=== PATIENT | male | born 1970 | race Caucasian/White ===

== ENCOUNTER → 2016-05-22 | Outpatient (CLI) | payer OTHER, BC ==
[~2016-05-22] MED LIST: ASCA500 PO; BACTRIM PO; CALC625T13 PO; CHOL1000 PO; CLR10 PO; GARL1CAP6 PO; KETO10TA PO; LISI10TA PO; OMEG10007 PO; OXYC-57 PO; SULF800T23 PO
--- NOTE | 2016-05-22 08:42 | DIAGNOSTIC IMAGING REPORT ---
ORBIT RADIOGRAPHS 3 VIEWS HISTORY: pre-MRI screening. COMPARISON: None. FINDINGS: There are no radiopaque foreign bodies identified within the orbits. IMPRESSION: No radiopaque foreign bodies identified within the orbits. Electronically signed by: Horacio Joe M.D. 05/22/2016 8:40 AM Dictated Date/Time: 05/22/2016 8:40 AM
--- NOTE | 2016-05-22 10:08 | DIAGNOSTIC IMAGING REPORT ---
MRI the left shoulder no contrast CLINICAL HISTORY: Left shoulder pain. Possible rotator cuff tear. COMPARISON STUDY: No previous studies for comparison. FINDINGS: Imaging was performed in the sagittal paracoronal and axial planes. The study is compromised due to motion artifact. Degenerative changes are present within the AC joint. There is a small joint effusion. There is medial subluxation the bicipital tendon. There are osteoarthritic changes present within the glenohumeral joint. There is a full-thickness tear of the supraspinatus tendon with mild tendinous retraction. There is a small loose body within the subcutaneous coracoid bursa. IMPRESSION: 1. Joint effusion small loose body 2. Full-thickness rotator cuff tear with mild tendinous retraction 3. Medial subluxation the bicipital tendon 4. Degenerative changes in the AC joint and glenohumeral joint Electronically signed by: Horacio Joe M.D. 05/22/2016 10:07 AM Dictated Date/Time: 05/22/2016 10:01 AM
== END | disposition home or self-care (01) ==
LOC: C.RADBC 08:12
PROVIDERS: ATTEND Orthopaedic Surgery
DX: M25.412 Effusion, left shoulder (principal); M24.012 Loose body in left shoulder; M75.102 Unspecified rotator cuff tear or rupture of left shoulder, not specified as traumatic

== ENCOUNTER → 2016-06-06 | Outpatient (CLI) | payer OTHER, BC ==
[2016-06-06 09:38] LABS: BASO % 0.5 %; BASO ABS # 0.04 K/uL (0-0.2); COMPLETE YES; HEMATOCRIT 50.3 % (42-52); IG% 0.6 %; LYMPH % 24.1 %; LYMPH ABS # 1.98 K/uL (1.2-3.4); MEAN CELL VOLUME 87.5 fL (80-100); MEAN CORPUSCULAR HEMOGLOBIN 30.8 pg (25-34); MEAN CORPUSCULAR HGB CONC 35.2 g/dl (32-36); MEAN PLATELET VOLUME 10.2 fL (7.4-10.4); MONO % 10.4 %; NEUT % 63.4 %; PLATELET COUNT 188 K/uL (130-400); RED BLOOD COUNT 5.75 M/uL (4.7-6.1); WHITE BLOOD COUNT 8.21 K/uL (4.8-10.8)
[2016-06-06 09:56] LABS: BLOOD UREA NITROGEN 16 mg/dl (7-18); BUN/CREATININE RATIO 15.9 (10-20); CALCIUM 9.2 mg/dl (8.5-10.1); CARBON DIOXIDE 31 mmol/L (21-32); CHLORIDE 102 mmol/L (98-107); GLUCOSE 90 mg/dl (70-99); POTASSIUM 4.1 mmol/L (3.5-5.1); SODIUM 140 mmol/L (136-145)
== END | disposition home or self-care (01) ==
LOC: C.RAD 06:51
PROVIDERS: ATTEND Orthopaedic Surgery
DX: Z01.810 Encounter for preprocedural cardiovascular examination (principal); Z01.812 Encounter for preprocedural laboratory examination; M75.122 Complete rotator cuff tear or rupture of left shoulder, not specified as traumatic; I49.1 Atrial premature depolarization; I49.3 Ventricular premature depolarization

== ENCOUNTER → 2016-06-29 | Day surgery (SDC) | payer BC, OTHER ==
[2016-06-16 07:51] VITALS: Ht 190.5 cm; Wt 125.0 kg
[~2016-06-29] VITALS: Ht 190.5 cm; Wt 125.0 kg
[~2016-06-29] MED LIST changes: +BUPIVACAINE 0.5 % 5 MG/1 ML MPF 30ML VIAL ONE; +BUPIVACAINE/EPINEPHRINE 0.25% 1:200,000 30 ML VIAL ONE; +CLINDAMYCIN PHOS 150 MG/ML 2 ML VIAL IV SCH; +DEXAMETHASONE SOD INJ 4 MG/ML VIAL ONE; +EpHEDrine SULFATE 50MG/5ML SYR ONE; +EpINEphrine INJ 1MG/ML AMP 1 MG/ML AMP ONE; +FENTANYL CITRATE INJ 50 MCG/1 ML 2 ML VIAL IV PRN; +FENTANYL CITRATE INJ 50 MCG/1 ML 2 ML VIAL ONE; +GLYCOPYRROLATE INJ 0.2 MG/ML VIAL ONE; +LACTATED RINGER'S 1000ML 1,000 ML IV PRN; +LACTATED RINGER'S 1000ML 1,000 ML IV SCH; +LIDOCAINE HCL 2% 2 ML VIAL (20MG/ML) ONE; +MIDAZOLAM HCL 1 MG/ML 2ML VIAL ONE; +NEOSTIGMINE METHYLSULFATE 5 MG/5 ML SYR ONE; +ONDANSETRON INJ 2 MG/ML 2 ML VIAL IV PRN; +ONDANSETRON INJ 2 MG/ML 2 ML VIAL ONE; +OXYCODONE/ACETAMINOPHEN 5-325 TAB PO PRN; +PROPOFOL IV EMULSION 10 MG/ML 20 ML VIAL IV ONE; +ROCURONIUM BROMIDE 10 MG/ML 5 ML VIAL ONE; +SCOPOLAMINE 1.5 MG TDSY TD ONE; +SODIUM CHLORIDE 0.9% 1000ML 1,000 ML IV SCH; +SUCCINYLCHOLINE CHLORIDE 20 MG/ML 10 ML VIAL IV ONE
--- NOTE | 2016-06-29 08:37 | History & Physical Bridge - SC ---
H&P Re-Evaluation Bridge Note: I have examined the patient, reviewed the History & Physical and in the interval since the performance of the History & Physical I have noted the following changes of clinical significance: No changes noted
--- NOTE | 2016-06-29 13:27 | [facility] Post Operative Brief Note ---
Immediate Operative Summary Operative Date Jun 29, 2016. Pre-Operative Diagnosis Left Shoulder Full Thickness Rotator Cuff Tear Post-Operative Diagnosis Same Procedure(s) Performed Left Shoulder Arthroscopy, Large Rotator Cuff Repair, Biceps Tenodesis, Acromioplasty, Distal Clavicle Resection Surgeon Dr. Mcgee Resort Desk Clerk Surgeon(s) Jamshid Eid PA-C Estimated Blood Loss 20 ml Findings as above Specimens None Complication(s) None Disposition Recovery Room / PACU
--- NOTE | 2016-06-29 13:35 | Discharge Instructions-SurgCtr ---
Discharge Instructions Date of Service Jun 29, 2016. Visit Reason for Visit: Left Shoulder Full Thickness Rotator Cuff Tear Discharge Discharge Diagnosis / Problem: SAME ABOVE Discharge Goals Goal(s): Decrease discomfort, Improve function Medications Stopped Medications Name(s): FISH OIL STOPPED 1 WEEK AGO Restart Stopped Medication(s): MAY RESTART 06/30/2016 Activity Recommendations Activity Limitations: as noted below Lifting Limitations: until after follow-up appointment Exercise/Sports Limitations: until after follow-up appointment Shower/Bathe: tomorrow Anesthesia . Post Anesthesia Instructions: If you have had General Anesthesia or IV Sedation: * Do not drive today. * Resume driving when surgeon permits. * Do not make important decisions or sign legal documents today. * Call surgeon for: 1. Temperature elevations greater than 101 degrees F. 2. Uncontrollable pain. 3. Excessive bleeding. 4. Persistent nausea and vomiting. 5. Medication intolerance (nausea, vomiting or rash). * For nausea and vomiting use only clear liquids such as: tea, soda, bouillon until nausea subsides, then gradually increase diet as tolerated. * If you have any concerns or questions, call your surgeon's office. If physician is unavailable and it is an emergency, call 911 or go to the nearest emergency room. . Instructions / Follow-Up Instructions / Follow-Up MEDICATIONS: * Resume previous medications unless instructed otherwise by your surgeon. * Always take pain medication on a full stomach or with food to avoid upset stomach. * Do not drink alcohol or drive while taking narcotics. * Ibuprofen or Tylenol may be taken if narcotic not needed. SPECIAL CARE INSTRUCTIONS: __ None _X_ Keep extremity elevated and iced x 48 hours; apply ice 20-30 minutes 8-10 times/day. May remove at night. __ Sling __24 hrs/day __ Remove at night _X_ Shoulder Immobilizer (MAY REMOVE AFTER 48 HOURS ONLY FOR THERAPY AND TO SHOWER) _X_ 24 hrs/day __ Remove at night _X_ Dressing __ Maintain until seen in office, may shower with plastic over site _X_ Remove dressings in 48 hours and then may shower _X_ Cover incisions with band-aids after showering _X_ Do not remove steri-strips (THEY ARE IN THE ARMPIT AND MAY FALL OFF ON THEIR OWN) Call physician if chills or temperature rises above 102 degrees or pain unrelieved by prescribed pain medications at . . Diet Recommendations Home Diet: no limitations Fluid Restriction: None Procedures Procedures Performed: Left Shoulder Arthroscopy, Large Rotator Cuff Repair, Biceps Tenodesis, Acromioplasty, Distal Clavicle Resection Pending Studies Studies pending at discharge: no Work Instructions Return To Work: after follow-up Lifting Limitations: NO LIFTING WITH LEFT ARM Medical Emergencies . Who to Call and When: Medical Emergencies: If at any time you feel your situation is an emergency, please call 911 immediately. . Non-Emergent Contact Non-Emergency issues call your: Primary Care Provider Call Non-Emergent contact if: you have a fever, temperature is above 101.5 . . "Provider Documentation" section prepared by Harjit Eid.
--- NOTE | 2016-06-29 13:40 | Anesthesia Progress Nt - [facility] ---
Anesthesia Post Op Note Date & Time Jun 29, 2016 at 13:41 Vital Signs Pain Intensity: 0 Vital Signs Past 12 Hours Date Time Temp Pulse Resp B/P Pulse Ox O2 Delivery O2 Flow Rate FiO2 06/29/16 10:15 147/92 06/29/16 10:13 91 06/29/16 10:13 91 20 98 06/29/16 10:10 143/99 06/29/16 10:08 83 06/29/16 10:08 83 19 98 06/29/16 10:05 124/83 06/29/16 10:03 78 06/29/16 10:03 79 9 97 06/29/16 10:00 135/81 06/29/16 09:59 141/86 06/29/16 09:58 90 06/29/16 09:58 91 16 98 06/29/16 09:53 92 12 99 06/29/16 09:53 92 06/29/16 09:48 0 06/29/16 09:43 0 06/29/16 09:38 0 06/29/16 09:33 0 06/29/16 09:28 0 06/29/16 09:23 0 06/29/16 09:18 0 06/29/16 09:13 0 06/29/16 09:08 0 06/29/16 09:03 0 06/29/16 08:27 37.2 87 20 140/88 97 Notes Mental Status: alert / awake / arousable, participated in evaluation Pt Amnestic to Procedure: Yes Nausea / Vomiting: adequately controlled Pain: adequately controlled Airway Patency, RR, SpO2: stable & adequate BP & HR: stable & adequate Hydration State: stable & adequate Anesthetic Complications: no major complications apparent Pt doing well.
--- NOTE | 2016-06-29 14:41 | OPERATIVE REPORT ---
DATE OF OPERATION: 06/29/2016 PREOPERATIVE DIAGNOSIS: Acute traumatic left rotator cuff tear. POSTOPERATIVE DIAGNOSIS: Same. PROCEDURE: Left shoulder diagnostic arthroscopy with extensive debridement, distal clavicle resection, acromioplasty, massive rotator cuff repair including supraspinatus, infraspinatus and subscapularis and open subpectoral biceps tenodesis. SURGEON: Dr. Jose Mcgee. CHEMIST: Frank Eid PA-C, whose assistance was necessary for positioning the arm and helping with instrumentation. ANESTHESIA: General with left interscalene nerve block. COMPLICATIONS: None. CONDITION: Stable to PACU. This case took longer than the average rotator cuff repair. After the supraspinatus and infraspinatus were repaired successfully separate incisions were made to repair the subscapularis. The addition of the subscapularis repair took over 50% longer of operative time. INDICATIONS: Gustavo is a pleasant 45-year-old male who fell at work several months ago. He noticed weakness and pain in his left shoulder. MRI and clinical examination were diagnostic for large to massive rotator cuff tear. After failing conservative treatment, he elected to undergo arthroscopy. OPERATION AND FINDINGS: PROCEDURE: On 06/29/2016, he arrived at [facility] for the above procedure. He was seen in the preoperative holding area and the operative extremity was identified and signed. He was given a preoperative antibiotic and a left interscalene nerve block. He was taken back to the operating room, laid on the table in supine position and put under general anesthesia. He was then put into the beachchair position. The left shoulder was prepped and draped in sterile fashion. Time-out was done and the patient and operative extremity was properly identified. A scope was introduced in the posterior portal. Diagnostic arthroscopy showed no cartilage damage to the humeral head or the glenoid. The biceps tendon was subluxated medially and the upper half of the subscapularis was torn. There was some fraying of the labrum. There was a complete tear of the entire supraspinatus and the superior half of the infraspinatus. The teres minor was intact. An anterior portal was made. A shaver was used to start an extensive debridement of the intraarticular structures and the biceps tendon was arthroscopically tenotomized. The scope was then put into the subacromial space. A lateral portal was made. A shaver was used to do a complete subacromial and subdeltoid bursectomy. An ablator was used to tease the coracoacromial ligament off the undersurface of the acromion and a 5-0 marisol was used to complete an acromioplasty of a Bigliani type 3 acromion. A shaver was used to remove any excess debris and the distal clavicle was examined. There were very large osteophytes hanging off the inferior aspect of the distal clavicle. A 5-0 marisol was used to co-plane the undersurface of the clavicle and open up the supraspinatus outlet. Attention was then turned to the rotator cuff. An additional anterolateral portal was made and Zakiya cannulas were placed in each of the lateral portals. It was a massive traumatic rotator cuff tear involving 3 tendons. The tuberosity was prepared with a ring curette and a microfracture. The supraspinatus and infraspinatus were fixed with an Arthrex suspension bridge configuration using 4.75 mm BioComposite SwiveLock suture anchors. This gave a nice anatomic repair. The scope was placed back into the joint. A 70 degree scope was used. The subscapularis tear was identified, the additional anterior portal was made. The lesser tuberosity was prepared with a ring curette. A single 4.75 mm BioComposite SwiveLock suture anchor was placed along the medial row and the FiberTapes were passed through the tendon with a suture lasso. The scope was then put into the subacromial space and the FiberTapes were brought down to a single 4.75 mm BioComposite SwiveLock suture anchor. This gave a nice modified SpeedBridge repair. Multiple pictures were taken. The scope was placed back into the glenohumeral joint and the articular margin of the rotator cuff had been completely restored. Arthroscopic instruments were removed from the shoulder. Attention was turned to an open biceps tenodesis. A small incision was made over the inferior border of the pec major. Dissection was taken down through the fascia and the long head of the biceps tendon was delivered out of the wound. The tendon was then whip stitched at the anticipated level of tenodesis. The remainder of the tendon was discarded. A 6 mm hole was drilled in the bicipital groove and the biceps tendon was tenodesed with an Arthrex biceps button that was passed through the posterior cortex in tension slide technique to deliver the tendon into the 6 mm hole. This gave good fixation. The wound was then irrigated and closed with 3-0 Vicryl and running 3-0 Monocryl. Steri-strips were placed. Portal sites were closed with 3-0 nylon. He was then placed in a soft dressing and abduction arm sling. He was then extubated, transferred to a [facility] and taken to the postanesthesia care unit in stable condition. He tolerated the procedure well. I attest to the content of the Intraoperative Record and any orders documented therein. Any exceptio ns are noted below.
[2016-06-29 15:06] VITALS: TEMP 36.5
[2016-06-29 15:44] VITALS: BP 155/97; PULSE 92; O2SAT 95
== END | disposition home or self-care (01) ==
LOC: X.SURG 07:53
PROVIDERS: ATTEND Orthopaedic Surgery
DX: S43.422A Sprain of left rotator cuff capsule, initial encounter (principal); W19.XXXA Unspecified fall, initial encounter; I10 Essential (primary) hypertension; Y93.89 Activity, other specified; Y92.89 Other specified places as the place of occurrence of the external cause; Y99.8 Other external cause status

== ENCOUNTER → 2016-12-14 | Day surgery (SDC) | payer BC ==
[2016-12-13 08:33] VITALS: Ht 190.5 cm; Wt 125.0 kg
[~2016-12-14] VITALS: Ht 190.5 cm; Wt 125.0 kg
[~2016-12-14] MED LIST changes: +ATROPINE SULFATE 0.1 MG/ML 5ML SYR IV PRN; -BUPIVACAINE 0.5 % 5 MG/1 ML MPF 30ML VIAL ONE; -BUPIVACAINE/EPINEPHRINE 0.25% 1:200,000 30 ML VIAL ONE; +BUPIVACAINE/EPINEPHRINE 0.5% MPF 1:200,000 30 ML VIAL ONE; -EpHEDrine SULFATE 50MG/5ML SYR ONE; +EpHEDrine SULFATE INJ 50 MG/ML AMP IV PRN; -EpINEphrine INJ 1MG/ML AMP 1 MG/ML AMP ONE; -GLYCOPYRROLATE INJ 0.2 MG/ML VIAL ONE; +HYDROCODONE/ACETAMOPHEN 5/325MG TAB PO PRN; +HYDROmorphone INJ 1 MG/ML SYR IV PRN; -KETO10TA PO; -LACTATED RINGER'S 1000ML 1,000 ML IV PRN; -NEOSTIGMINE METHYLSULFATE 5 MG/5 ML SYR ONE; -OXYC-57 PO; -OXYCODONE/ACETAMINOPHEN 5-325 TAB PO PRN; -ROCURONIUM BROMIDE 10 MG/ML 5 ML VIAL ONE; -SUCCINYLCHOLINE CHLORIDE 20 MG/ML 10 ML VIAL IV ONE
--- NOTE | 2016-12-14 14:49 | Discharge Instructions-SurgCtr ---
Discharge Instructions Date of Service Dec 14, 2016. Visit Reason for Visit: Right Prepatella Bursitis Discharge Discharge Diagnosis / Problem: SAME ABOVE Discharge Goals Goal(s): Decrease discomfort, Improve function Medications Stopped Medications Name(s): Held all supplements and Lisinopril held today Restart Stopped Medication(s): MAY RESTART 12/14/2016 Activity Recommendations Activity Limitations: as noted below Shower/Bathe: tomorrow Weightbearing Status: Right weightbearing Anesthesia . Post Anesthesia Instructions: If you have had General Anesthesia or IV Sedation: * Do not drive today. * Resume driving when surgeon permits. * Do not make important decisions or sign legal documents today. * Call surgeon for: 1. Temperature elevations greater than 101 degrees F. 2. Uncontrollable pain. 3. Excessive bleeding. 4. Persistent nausea and vomiting. 5. Medication intolerance (nausea, vomiting or rash). * For nausea and vomiting use only clear liquids such as: tea, soda, bouillon until nausea subsides, then gradually increase diet as tolerated. * If you have any concerns or questions, call your surgeon's office. If physician is unavailable and it is an emergency, call 911 or go to the nearest emergency room. . Instructions / Follow-Up Instructions / Follow-Up MEDICATIONS: * Resume previous medications unless instructed otherwise by your surgeon. * Always take pain medication on a full stomach or with food to avoid upset stomach. * Do not drink alcohol or drive while taking narcotics. * Ibuprofen or Tylenol may be taken if narcotic not needed. SPECIAL CARE INSTRUCTIONS: __ None _X_ Keep extremity elevated and iced x 48 hours; apply ice 20-30 minutes 8-10 times/day. May remove at night. __ Crutches __ May discard when able __ Brace/Post-op shoe __ 24 hrs/day __ Remove at night _X_ Dressing __ Maintain until seen in office, may shower with plastic over site _X_ Remove dressings in 24-48 hours and then may shower _X_ Cover incisions with band-aids after showering __ Do not remove steri-strips Call physician if chills or temperature rises above 102 degrees or pain unrelieved by prescribed pain medications. Office [phone] Diet Recommendations Home Diet: no limitations Fluid Restriction: None Procedures Procedures Performed: Right Prepatella Bursa Irrigation And Drainage With Bursectomy Pending Studies Studies pending at discharge: no Work Instructions Return To Work: 1 day Medical Emergencies . Who to Call and When: Medical Emergencies: If at any time you feel your situation is an emergency, please call 911 immediately. . Non-Emergent Contact Non-Emergency issues call your: Primary Care Provider Call Non-Emergent contact if: you have a fever, temperature is above 101.5 . . "Provider Documentation" section prepared by Harjit Eid. .
[2016-12-14 14:50] VITALS: TEMP 36.3
--- NOTE | 2016-12-14 14:53 | [facility] Post Operative Brief Note ---
Immediate Operative Summary Operative Date Dec 14, 2016. Pre-Operative Diagnosis Right Prepatella Bursitis Post-Operative Diagnosis Same Procedure(s) Performed Right Prepatella Bursa Irrigation And Drainage With Bursectomy Surgeon Dr. Mcgee Mat Man Surgeon(s) Jamshid Eid PA-C Estimated Blood Loss 5 cc Findings as above Specimens None Complication(s) None Disposition Recovery Room / PACU
[2016-12-14 15:27] VITALS: BP 126/73; PULSE 71; O2SAT 96
--- NOTE | 2016-12-14 15:29 | Anesthesiology Progress Note ---
Anesthesia Post Op Note Date & Time Dec 14, 2016 at 15:29 Vital Signs Pain Intensity: 0 Vital Signs Past 12 Hours Date Time Temp Pulse Resp B/P (MAP) Pulse Ox O2 Delivery O2 Flow Rate FiO2 12/14/16 15:27 71 18 126/73 (90) 96 Room Air 12/14/16 14:50 36.3 87 14 128/75 (92) 95 Room Air 12/14/16 13:14 37.0 87 16 133/89 (104) 96 Room Air Notes Mental Status: alert / awake / arousable, participated in evaluation Pt Amnestic to Procedure: Yes Nausea / Vomiting: adequately controlled Pain: adequately controlled Airway Patency, RR, SpO2: stable & adequate BP & HR: stable & adequate Hydration State: stable & adequate Anesthetic Complications: no major complications apparent
--- NOTE | 2016-12-14 22:17 | OPERATIVE REPORT ---
DATE OF OPERATION: 12/14/2016 PREOPERATIVE DIAGNOSIS: Septic prepatellar bursitis of the right knee. POSTOPERATIVE DIAGNOSIS: Same. PROCEDURE: Irrigation, debridement and excision of prepatellar bursa of the right knee. SURGEON: Dr. Jose Mcgee. REVIEW ASSISTANT: Harjit Eid PA-C, whose assistance was necessary for retraction and helping with instrumentation. ANESTHESIA: Local with sedation. COMPLICATIONS: None. CONDITION: Stable to PACU. INDICATIONS: Michael is a pleasant 46-year-old male who presented to my office with a swollen prepatellar bursa. I did do an aspiration but unfortunately it returned. It then developed a fistula and was constantly draining. It was cultured by his primary care physician and grew back MRSA. With the persistent drainage, I decided to do an I&D and bursectomy. PROCEDURE IN DETAIL: On 12/14/2016, he arrived at [facility] for the above procedure. He was seen in the preoperative holding area and the operative extremity was identified and signed. He was given a preoperative antibiotic and taken back to the operating room, laid on the table in supine position and given general sedation. The right knee was then prepped and draped in sterile fashion. Time-out was done and the patient and operative extremity was properly identified. The surgical site was anesthetized with 15 mL of Marcaine. Once analgesia was obtained, a longitudinal incision was made directly over the prepatellar bursa. Dissection was taken down through the fascia and the bursa was excised. There was no purulent material and no signs of pus. Time was spent ensuring a complete excision of the bursa. The space was then irrigated with a liter of normal saline solution. The edges of the skin were then incised back to good bleeding margins and the wound was closed with an everted mattress suture. Because it did not look grossly infected, I felt comfortable closing it without a drain. He was then placed in a soft compressive dressing and taken to the postanesthesia care unit in stable condition. He tolerated the procedure well. I attest to the content of the Intraoperative Record and any orders documented therein. Any exception s are noted below.
== END | disposition home or self-care (01) ==
LOC: X.SURG 12:49
PROVIDERS: ATTEND Orthopaedic Surgery
DX: M71.161 Other infective bursitis, right knee (principal); I10 Essential (primary) hypertension; Z79.899 Other long term (current) drug therapy

== ENCOUNTER → 2017-06-21 | Outpatient (CLI) | payer BC ==
[~2017-06-21] MED LIST changes: -ATROPINE SULFATE 0.1 MG/ML 5ML SYR IV PRN; -BUPIVACAINE/EPINEPHRINE 0.5% MPF 1:200,000 30 ML VIAL ONE; -CLINDAMYCIN PHOS 150 MG/ML 2 ML VIAL IV SCH; -DEXAMETHASONE SOD INJ 4 MG/ML VIAL ONE; -EpHEDrine SULFATE INJ 50 MG/ML AMP IV PRN; -FENTANYL CITRATE INJ 50 MCG/1 ML 2 ML VIAL IV PRN; -FENTANYL CITRATE INJ 50 MCG/1 ML 2 ML VIAL ONE; -HYDROCODONE/ACETAMOPHEN 5/325MG TAB PO PRN; -HYDROmorphone INJ 1 MG/ML SYR IV PRN; -LACTATED RINGER'S 1000ML 1,000 ML IV SCH; -LIDOCAINE HCL 2% 2 ML VIAL (20MG/ML) ONE; -MIDAZOLAM HCL 1 MG/ML 2ML VIAL ONE; -ONDANSETRON INJ 2 MG/ML 2 ML VIAL IV PRN; -ONDANSETRON INJ 2 MG/ML 2 ML VIAL ONE; -PROPOFOL IV EMULSION 10 MG/ML 20 ML VIAL IV ONE; -SCOPOLAMINE 1.5 MG TDSY TD ONE; -SODIUM CHLORIDE 0.9% 1000ML 1,000 ML IV SCH; -SULF800T23 PO
--- NOTE | 2017-06-21 16:20 | DIAGNOSTIC IMAGING REPORT ---
Study: Fusion CT of the sinuses HISTORY: Chronic sinusitis FINDINGS: Trace mucosal thickening base of the maxillary sinuses. The ostiomeatal units show minimal soft tissue narrowing on the right but are patent. Mild hypertrophic change right nasal turbinates compared to the left. Slight nasal septal displacement to the left. All remaining sinuses are clear. The orbital margins are intact. Structures of the temporal bone appear unremarkable. IMPRESSION: 1. Trace mucosal thickening maxillary sinuses. 2. The ostiomeatal units are patent with minimal soft tissue narrowing on the right. 3. Mild hypertrophic change of the right nasal turbinates. Electronically signed by: Antonio Weiss M.D. 06/21/2017 4:19 PM Dictated Date/Time: 06/21/2017 4:15 PM
== END | disposition home or self-care (01) ==
LOC: C.CTS 15:54
DX: J32.9 Chronic sinusitis, unspecified (principal)

== ENCOUNTER 2018-11-01 11:48 | Inpatient (IN) ==
--- NOTE | 2018-09-30 14:20 | PAT Medication Instructions ---
Medication Instructions Date of Service September 30, 2018 Home Medications ascorbic acid (vitamin C) 500 mg PO QAM calcium polycarbophil [Fiber (calcium polycarbophil)] 3,810 mg PO QAM cholecalciferol (vitamin D3) 1 unit PO QAM garlic 20 mg PO QAM glucos sul [id number]-pji-dtuqt-C-Mn [Glucosamine Chondroitin] 2 cap PO QAM lisinopril 10 mg PO QAM loratadine 10 mg PO QAM omega 5-beb-yrh-fish oil [[place]-3] 1 cap PO QAM STOP taking 2 weeks before surgery (or as soon as possible if surgery is within 2 weeks) garlic 20 mg PO QAM glucos sul [id number]-png-zfiql-C-Mn [Glucosamine Chondroitin] 2 cap PO QAM omega 4-lzg-pjn-fish oil [[place]-3] 1 cap PO QAM DO NOT take the morning of surgery ascorbic acid (vitamin C) 500 mg PO QAM calcium polycarbophil [Fiber (calcium polycarbophil)] 3,810 mg PO QAM cholecalciferol (vitamin D3) 1 unit PO QAM lisinopril 10 mg PO QAM loratadine 10 mg PO QAM Other Notes If you have any questions please call us at [phone] or [phone] or [phone] or [phone]
--- NOTE | 2018-10-01 10:03 | Anesthesiology Consultation ---
Date of Service October 01, 2018 Assessment & Plan (1) Encounter for pre-operative examination: - Preop EKG done 10/01/18 still unconfirmed at time of review. Will need to review confirmed EKG AM DOS. - Hx glidescope intubation: Left shoulder arthroscopy, RCR, distal clavicle resection: 06/29/16: "Elective" glidescope #4, ETT 7.5 at [facility]. "Good view." Chart Review Chart Review: Acceptable Risk for Surgery and Patient seen in Pre Admission Testing Teaching & Discussion Pre-Anesthesia Teaching/Discussion Notes: Instructed NPO after midnight before surgery,except medications with 15 cc of water. Medication instructions provided according to the PAT guidelines. History Surgery Operation Date: 11/01/18 12:30 Proposed Procedures p Right Anterior Total Hip Replacement - Jose Mcgee DO Height/Weight Height: 6 ft 3 in Weight: 122.1 kg Allergies Allergy/AdvReac Type Severity Reaction Status Date / Time Penicillins Allergy Unknown RASH/HIVES Verified 09/23/18 13:20 Medications Home Medications Medication Instructions Recorded Confirmed Last Taken ascorbic acid (vitamin C) 500 mg PO QAM 09/23/18 09/23/18 Unknown calcium polycarbophil [Fiber 3,810 mg PO QAM 09/23/18 09/23/18 Unknown (calcium polycarbophil)] cholecalciferol (vitamin D3) 1 unit PO QAM 09/23/18 09/23/18 Unknown garlic 20 mg PO QAM 09/23/18 09/23/18 Unknown glucos sul 5DIw-bpx-zdqub-C-Mn 2 cap PO QAM 09/23/18 09/23/18 Unknown [Glucosamine Chondroitin] lisinopril 10 mg PO QAM 09/23/18 09/23/18 Unknown loratadine 10 mg PO QAM 09/23/18 09/23/18 Unknown omega 8-jpu-oot-fish oil [Tiro-3] 1 cap PO QAM 09/23/18 09/23/18 Unknown Past Medical History Medical History Hypertension Obesity Osteoarthritis Sleep apnea CPAP Exercise / Class Metabolic Activity II 4-5 Yardwork/Stairs/Walk up hill Past Family History Family History Mother FHx: cancer Father FHx: diabetes mellitus Grandfather (Paternal) FHx: diabetes mellitus Grandfather (Maternal) FHx: diabetes mellitus Past Surgical History Surgical History History of difficult intubation Left shoulder arthroscopy, RCR, distal clavicle resection: 06/29/16: "Elective" glidescope #4, ETT 7.5 at [facility]. "Good view." Hx of right knee surgery Hx of shoulder surgery LEFT Past Anesthesia History Difficult Airway (Left shoulder arthroscopy, RCR, distal clavicle resection: 06/29/16: "Elective" glidescope #4, ETT 7.5 at [facility]. "Good view.") and No Family Hx of Anesthesia Complications "Slow to wake" x1 episode with shoulder surgery. No known hx reintubation. History of PONV History of PONV and Hx of Motion Sickness Social History Smoking Status: Never smoker Do You Dip or Chew Tobacco: No Hx Alcohol Use: Yes Alcohol type: beer alcohol intake frequency: a few times a month Hx Substance Use: No Review of Systems Patient denies chest pain, shortness of breath, dyspnea on exertion, reflux, cough, wheezing, palpitations. Physical Exam Vital Signs VITALS BP 110/67 P 78 TEMP 98.5 SP02 96%RA RESP 18 PHYSICAL Full neck and c-spine range of motion. Full TMJ range of motion. TMD 3 finger breaths Mallampati Score 3 Dentition: intact Lungs: clear throughout to auscultation Cardiac: regular rate and rhythm, no murmurs noted Spine: normal Carotid arteries: negative bruit Extremities: no edema Testing Laboratory Results 10/01/18 10:20 10/01/18 10:20 PT 10.3 Seconds (9.0-12.0) 10/01/18 10:20 INR 1.0 (0.9-1.1) 10/01/18 10:20 APTT 25.1 Seconds (21.0-31.0) 10/01/18 10:20 Blood Type A Positive 10/01/18 10:20 Antibody Screen NEGATIVE 10/01/18 10:20 Electrocardiogram Date: 10/01/18 NSR at 69bpm. "Normal" EKG. (unconfirmed) Chest X-Ray Date: 10/01/18 Findings: + NAD There is mild elevation of the right hemidiaphragm.
--- NOTE | 2018-10-01 10:56 | XRay Report ---
TWO VIEW CHEST CLINICAL HISTORY: Preoperative examination. FINDINGS: PA and lateral chest radiographs are obtained. No prior studies are available for compariso n at the time of dictation. The cardiomediastinal silhouette is unremarkable. There is mild elevati on of the right hemidiaphragm. The lungs and pleural spaces are clear. There is no pneumothorax. The bony thorax appears intact. IMPRESSION: No active disease in the chest. Electronically signed by: Lanre Helton M.D. 10/01/2018 10:55 AM
[2018-10-01 11:03] LABS: Basophils # (auto) 0.02 K/uL (0-0.2); Basophils % (auto) 0.3 %; Eosinophils # (auto) 0.04 K/uL (0-0.5); Eosinophils % (auto) 0.5 %; Hematocrit (blood only) 47.1 % (42-52); Hemoglobin 16.7 g/dL (14.0-18.0); Immature Granulocytes # (auto) 0.04 K/uL (0.00-0.02); Immature Granulocytes % (auto) 0.5 %; Lymphocytes # (auto) 1.57 K/uL (1.2-3.4); Lymphocytes % (auto) 20.2 %; Mean Corpuscular Hgb Conc 35.5 g/dL (32-36); Mean Corpuscular Volume 85.6 fL (80-100); Mean Platelet Volume 9.8 fL (7.4-10.4); Monocytes # (auto) 0.71 K/uL (0.11-0.59); Monocytes % (auto) 9.1 %; Neutrophils # (auto) 5.39 K/uL (1.4-6.5); Neutrophils % (auto) 69.4 %; Platelet Count 173 K/uL (130-400); RDW Coefficient of Variation 12.8 % (11.5-14.5); RDW Standard Deviation 40.1 fL (36.4-46.3); White Blood Count 7.77 K/uL (4.8-10.8)
[2018-10-01 11:17] LABS: Partial Thromboplastin Ratio 0.9; Partial Thromboplastin Time 25.1 Seconds (21.0-31.0); Prothrombin Time 10.3 Seconds (9.0-12.0)
[2018-10-01 11:29] LABS: BUN Creatinine Ratio 15.4 (10-20); Calcium 9.1 mg/dl (8.5-10.1); Creatinine Clr Calc Pharmacy 136.7 ml/min; Est GFR (African American) 112.8; Est GFR (Non-African American) 97.3; Potassium 4.3 mmol/L (3.5-5.1)
--- NOTE | 2018-10-30 07:37 | History & Physical Report ---
Date of Service October 30, 2018 Assessment & Plan (1) Osteoarthritis of right hip: We will proceed with a right anterior total hip arthroplasty. Postoperatively he will be started on aspirin for DVT prophylaxis. He will be kept overnight in the hospital for postoperative medical management. He plans to use [facility] upon discharge. Present on Admission?: Yes History of Present Illness Chief Complaint: Primary osteoarthritis of the right hip Primary Care Provider: Mali Carroll MD Gustavo is a pleasant 48-year-old male who is been dealing with a several year history of chronic increasing right hip and groin pain. X-rays and clinical examination have been diagnostic for primary osteoarthritis of the right hip. After failing years of conservative treatment, he has elected to proceed with a right anterior total hip arthroplasty. Allergies Allergy/AdvReac Type Severity Reaction Status Date / Time Penicillins Allergy Unknown RASH/HIVES Verified 09/23/18 13:20 Home Medications Home Medications Medication Instructions Recorded Confirmed Type ascorbic acid (vitamin C) 500 mg PO QAM 09/23/18 09/23/18 History calcium polycarbophil [Fiber 3,810 mg PO QAM 09/23/18 09/23/18 History (calcium polycarbophil)] cholecalciferol (vitamin D3) 1 unit PO QAM 09/23/18 09/23/18 History garlic 20 mg PO QAM 09/23/18 09/23/18 History glucos sul [id number]-[id number]-C-Mn 2 cap PO QAM 09/23/18 09/23/18 History [Glucosamine Chondroitin] lisinopril 10 mg PO QAM 09/23/18 09/23/18 History loratadine 10 mg PO QAM 09/23/18 09/23/18 History omega 9-zis-sel-fish oil [Merrill-3] 1 cap PO QAM 09/23/18 09/23/18 History Past Med/Surg History Medical History Hypertension Obesity Osteoarthritis Sleep apnea CPAP Surgical History History of difficult intubation Left shoulder arthroscopy, RCR, distal clavicle resection: 06/29/16: "Elective" glidescope #4, ETT 7.5 at [facility]. "Good view." Hx of right knee surgery Hx of shoulder surgery LEFT Family History Mother FHx: cancer Father FHx: diabetes mellitus Grandfather (Paternal) FHx: diabetes mellitus Grandfather (Maternal) FHx: diabetes mellitus Social History Preferred Language: [place] Communication Ability: Effective Beliefs That Will Affect Care: None Current Living Situation: Family Feels Safe at Home: Yes Smoking Status: Never smoker Second Hand Exposure: Yes (OCCASSIONALLY) Hx Alcohol Use: Yes Alcohol type: beer Hx Substance Use: No Review of Systems All systems reviewed & are unremarkable except as noted in HPI & below Physical Exam Constitutional: WD/WN, vitals as above Eyes: PERRL, conjunctivae normal, anicteric sclerae ENMT: external ear and nose normal, oropharynx normal Neck: trachea midline, no thyromegaly Respiratory: normal respiratory effort Cardiovascular: RRR, no murmur, no edema Gastrointestinal (Abdomen): normal bowel sounds, soft, nontender, no hepatosplenomegaly Musculoskeletal: Physical examination of the right hip reveals decreased range of motion with flexion, internal and external rotation. There is significant groin pain with forced internal rotation of the hip his leg lengths are essentially equal. Psychiatric: A+Ox3, euthymic affect Results & Data Diagnostic Findings Radiographs of the right hip and pelvis demonstrate advanced osteoarthritis with joint space narrowing osteophyte formation and kncx-oc-tspt articulation.
[~2018-11-01 11:48] MED LIST changes: +ACETAMINOPHEN 500 MG TAB PO SCH; -ASCA500 PO; -BACTRIM PO; +BUPIVACAINE 0.5 % 5 MG/1 ML PF 10ML VIAL ONE; -CALC625T13 PO; -CHOL1000 PO; -CLR10 PO; +FAMOTIDINE 20 MG TAB PO SCH; +GABAPENTIN 300 MG CAP PO SCH; -GARL1CAP6 PO; -LISI10TA PO; +LR 500ML BOLUS, THEN 15ML/HR IV SCH; +LR 60ML/HR IV SCH; -OMEG10007 PO; +ROPIVACAINE 0.5% HCL/PF 150 MG, BUPIVACAINE 0.5% MPF 30 ML, EPINEPHrine 30MG/30ML (OR U... INSTIL SCH; +TRANEXAMIC ACID 1,000 MG **IV Intra-op IV SCH; +TRANEXAMIC ACID 1,000 MG **IV Pre-op IV SCH
--- NOTE | 2018-11-01 11:52 | History & Physical Bridge Note ---
Date of Service November 01, 2018 History & Physical Bridge Note I have examined the patient, reviewed the History & Physical and in the interval since the performance of the History & Physical I have noted the following changes of clinical significance: no changes noted
[2018-11-01] MEDS ORDERED: PHENYLEPHRINE 100MCG/ML 5ML SYR IV PRN (12:03)
[2018-11-01] MEDS ORDERED: LABETALOL HCL IV 5 MG/ML 20ML IV PRN (12:03)
[2018-11-01] MEDS ORDERED: ATROPINE SULFATE 0.1 MG/ML 10ML SYR IV PRN (12:03)
[2018-11-01] MEDS ORDERED: fentaNYL citrate 100 MCG/2 ML VIAL IV PRN (12:03)
[2018-11-01] MEDS ORDERED: ePHEDrine sulfate 50 MG/ML AMP IV PRN (12:03)
[2018-11-01] MEDS ORDERED: ONDANSETRON INJ 2 MG/ML 2 ML VIAL IV PRN ×2 (12:03→16:43)
[2018-11-01] MEDS ORDERED: MIDAZOLAM HCL 1 MG/ML 2ML VIAL ONE ×3 (12:13→15:11)
[2018-11-01] MEDS ORDERED: LIDOCAINE HCL 2% 2 ML VIAL/AMP(20MG/ML) INFIL ONE (12:13)
[2018-11-01] MEDS ORDERED: PROPOFOL IV EMULSION 10 MG/ML 20 ML VIAL IV ONE (12:13)
[2018-11-01] MEDS ORDERED: KETAMINE HCL INJ 50 MG/ML 10 ML VIAL ONE (12:14)
[2018-11-01] MEDS ORDERED: fentaNYL citrate 100 MCG/2 ML VIAL ONE ×2 (12:14→15:32)
[2018-11-01] MEDS ORDERED: ORTHO JOINT ANESTHETIC ONE (12:34)
[2018-11-01] MEDS ORDERED: CEFAZOLIN 2000MG 2,000 MG/15 ML SYR IV ONE (13:23)
--- NOTE | 2018-11-01 15:26 | Operative Report ---
Post Operative Report Pre & Post Diagnosis Operation Date: 11/01/18 14:00 Pre-Op Diagnosis: RIGHT HIP DEGENERATIVE JOINT DISEASE Post-Op Diagnosis: RIGHT HIP DEGENERATIVE JOINT DISEASE Procedure Operation Date: 11/01/18 14:00 Actual Procedures p Right Anterior Total Hip Replacement(Right) - Jose Mcgee DO Surgeon Jose Mcgee DO Sas Developer Jose Ewing PAC Estimated Blood Loss 250 Findings Consistent with Post-Op Diagnosis Specimens Right femoral head Complications none Disposition Disposition: Recovery Room Indications Gustavo is a pleasant 48-year-old male who presented my office with complaints of chronic increasing right hip and groin pain. X-rays and clinical examination were diagnostic for primary osteoarthritis of the right hip. After failing conservative treatment, he elected to proceed with a right anterior total hip arthroplasty. Description of Procedure Implants used Biomet Taperloc total hip arthroplasty system with a size 12 standard offset Taperloc stem, a 56 mm G7 cup with a 25mm screw, an E1 polyethylene liner, a 40 mm ceramic head with a +3 neck. Patient arrived at the hospital for the above procedure. They were seen in the preoperative holding area and the operative extremity was identified and signed. They were given a spinal anesthetic. They were given a preoperative antibiotic and TXA. They were taken back To the operating room and laid on the table in the supine position. The leg was brought out through a Puristst leg positioner. The hip was then prepped and draped in sterile fashion. A timeout was done and the patient in upper extremities properly identified. An anterior approach was used. Dissection was taken down through the fascia and the tensor muscle belly was retracted laterally and the rectus was retracted medially. The circumflex vessels were identified and ligated. The capsule was then incised and tagged for later repair. The femoral neck was then cut and the femoral head was removed. The acetabulum was exposed. Time was spent doing a complete circumferential labral release. Sequential reaming of the acetabulum up to a size 55 reamer was done. Final reamings were done under fluoroscopy to ensure appropriate version. A Biomet 56 mm G7 cup was then impacted into place. A single 25 mm screw was placed. The E1 polyethylene liner was then snapped into place. Surrounding soft tissues were then injected with 100 cc of an orthopedic pain control cocktail. The proximal femur was then exposed. Sequential broaching up to a size 12 broach was done. Off that broach a size 40 head with a +3 neck was trialed. The hip was reduced and fluoroscopic images showed anatomic alignment of the implants in acceptable length. The broach was removed. The final size 12 standard offset Taperloc stem was then impacted into place. A ceramic 40 mm head with a +3 neck was then impacted into place in the hip was reduced. Final fluoroscopic images showed anatomic reduction of the hip. The capsule was then closed with #1 Vicryl suture. A dilute betadyne lavage was then done for 3 minutes. The joint was then irrigated with normal saline solution. The fascia was closed with #1 PDS suture. Skin was closed with 2-0 Vicryl, rosa, and a Kristy VAC dressing. The patient was then transferred to a hospital bed and taken to the post anesthesia care unit in stable condition. They tolerated the procedure well. I attest to the content of the Intraoperative Record and any orders documented therein. Any exceptions are noted below.
--- NOTE | 2018-11-01 16:29 | Anesthesiology Progress Note ---
Date of Service November 01, 2018 Anesthesia Post Procedure Vital Signs Vital Signs: Temp Pulse Pulse Resp BP BP Pulse Ox 11/01/18 16:25 36.9 C 65 18 130/65 95 11/01/18 16:15 58 L 18 126/66 100 11/01/18 16:05 77 18 138/66 97 11/01/18 15:58 37.4 C 60 18 133/68 96 11/01/18 12:12 37.0 C 78 18 147/80 H 98 Pain Intensity Right Hip: Pain Intensity: 5 Transfer of Care Handoff Completed per policy Notes Mental Status: alert / awake / arousable Patient Amnestic to Procedure: Yes Nausea / Vomiting: adequately controlled Pain: adequately controlled Airway Patency, RR, SpO2: stable & adequate BP & HR: stable & adequate Hydration State: stable & adequate Neuraxial Anesthesia: was administered and sensory block is resolving Anesthetic Complications: no major complications apparent
--- NOTE | 2018-11-01 16:38 | XRay Report ---
XR hip 1V RT w pelvis HISTORY: 48 years-old Male IN PACU - A/P PELVIS and LATERAL HIP right hip total joint arthroplasty COMPARISON: Fluoroscopic images of the right hip of same day TECHNIQUE: AP view of the pelvis with crosstable lateral view of the right hip FINDINGS: Right hip total joint arthroplasty demonstrates satisfactory alignment. Expected soft tissue swelling with deep tissue air. Lateral skin rosa with surgical drainage catheter. IMPRESSION: Satisfactory alignment of the right hip total joint arthroplasty. The above report was generated using voice recognition software. It may contain grammatical, syntax o r spelling errors. Electronically signed by: Caio Tong M.D. 11/01/2018 4:37 PM
--- NOTE | 2018-11-01 16:41 | Fluoroscopy Report ---
FL hip RT 1V CLINICAL HISTORY: RT ANTERIOR HIP COMPARISON STUDY: None. FLUOROSCOPY TIME: 48 seconds. FINDINGS: 2 fluoroscopic spot images of the right hip demonstrate a right total hip arthroplasty. The hardware appears intact. No fracture or dislocation. IMPRESSION: Fluoroscopy provided for right total hip arthroplasty. Electronically signed by: Manoj Busby M.D. 11/01/2018 4:40 PM
[2018-11-01] MEDS ORDERED: VANCOMYCIN CONSULT ACTIVE PRN (16:43)
[2018-11-01] MEDS ORDERED: MAGNESIUM HYDROXIDE SUSP 30 ML UDC PO PRN (16:43)
[2018-11-01] MEDS ORDERED: NALOXONE HCL 0.4 MG/1 ML VIAL/CARP IV PRN (16:43)
[2018-11-01] MEDS ORDERED: HYDROmorphone INJ 0.5 MG/0.5 ML SYR IV PRN (16:43)
[2018-11-01] MEDS ORDERED: OXYCODONE HCL IR 5 MG TAB (IMMEDIATE RELEASE) PO PRN (16:43)
[2018-11-01] MEDS ORDERED: METOCLOPRAMIDE HCL INJ 5 MG/ML 2 ML VIAL IV PRN (16:43)
[2018-11-01] MEDS ORDERED: BISACODYL 10 MG SUPP PR PRN (16:43)
[2018-11-01] MEDS: SODIUM CHLORIDE 0.9% 1000ML 1,000 ML IV SCH (17:22)
[2018-11-01] MEDS: KETOROLAC 30 MG/ML VIAL IV SCH ×2 (18:13→23:39)
[2018-11-01] MEDS: DOCUSATE SODIUM 100 MG CAP PO SCH (20:40)
[2018-11-01] MEDS: ASPIRIN 81 MG ECTAB PO SCH (20:40)
[2018-11-01] MEDS ORDERED: SENNA 8.6 MG TAB PO SCH (21:00)
[2018-11-01] MEDS: ACETAMINOPHEN 500 MG TAB PO SCH (21:10)
[2018-11-01] MEDS ORDERED: VANCOMYCIN HCL 1,750 MG in SODIUM CHLORIDE 0.9% 500 ML IV SCH (22:00)
[2018-11-02] MEDS: KETOROLAC 30 MG/ML VIAL IV SCH ×2 (05:56→13:22)
[2018-11-02] MEDS: ACETAMINOPHEN 500 MG TAB PO SCH ×2 (05:56→13:21)
[2018-11-02] MEDS: SODIUM CHLORIDE 0.9% 1000ML 1,000 ML IV SCH (06:05)
[2018-11-02 06:26] LABS: Basophils # (auto) 0.01 K/uL (0-0.2); Basophils % (auto) 0.1 %; Hematocrit (blood only) 41.3 % (42-52); Hemoglobin 14.3 g/dL (14.0-18.0); Immature Granulocytes # (auto) 0.05 K/uL (0.00-0.02); Immature Granulocytes % (auto) 0.3 %; Lymphocytes # (auto) 1.33 K/uL (1.2-3.4); Lymphocytes % (auto) 8.8 %; Mean Corpuscular Hgb Conc 34.6 g/dL (32-36); Mean Corpuscular Volume 88.8 fL (80-100); Mean Platelet Volume 10.1 fL (7.4-10.4); Monocytes # (auto) 1.38 K/uL (0.11-0.59); Monocytes % (auto) 9.1 %; Neutrophils # (auto) 12.42 K/uL (1.4-6.5); Neutrophils % (auto) 81.7 %; Platelet Count 153 K/uL (130-400); RDW Coefficient of Variation 12.9 % (11.5-14.5); RDW Standard Deviation 41.3 fL (36.4-46.3); Red Blood Count 4.65 M/uL (4.7-6.1); White Blood Count 15.19 K/uL (4.8-10.8)
[2018-11-02 07:03] LABS: BUN Creatinine Ratio 17.3 (10-20); Calcium 8.2 mg/dl (8.5-10.1); Creatinine Clr Calc Pharmacy 137.7 ml/min; Est GFR (African American) 115.8; Est GFR (Non-African American) 99.9; Potassium 4.1 mmol/L (3.5-5.1)
[2018-11-02] MEDS ORDERED: MULTIVITAMIN TAB PO SCH (09:00)
[2018-11-02] MEDS: DOCUSATE SODIUM 100 MG CAP PO SCH (09:00)
[2018-11-02] MEDS ORDERED: LORATADINE 10 MG TAB PO SCH (09:00)
[2018-11-02] MEDS: ASPIRIN 81 MG ECTAB PO SCH (09:00)
--- NOTE | 2018-11-02 09:40 | Orthopedic Progress Note ---
Date of Service November 02, 2018 Assessment & Plan (1) Osteoarthritis of right hip: Overall is doing very well. Is not having too much pain in the right hip. He will be seen by physical therapy this morning for ambulation and range of motion exercises. He can be discharged home later today with [facility]. He will follow-up with orthopedics in 2 weeks. Present on Admission?: Yes Subjective Gustavo was seen and examined at bedside this morning. Overall is doing very well. Is not having much pain in the right hip. He is already been up and ambulating. He has no complaints. Physical Exam Musculoskeletal: On physical examination of the right hip, the Kristy VAC dressing is to suction. His leg lengths are equal. He has active dorsiflexion and plantarflexion of his right ankle. Sensations intact. Results & Data Vital Signs (Past 12 Hours) Vital Signs Temp Pulse Resp BP Pulse Ox 11/02/18 08:00 36.9 C 58 L 16 130/75 98 11/02/18 04:10 36.7 C 16 117/62 97 11/01/18 23:50 36.6 C 65 16 157/77 H 95 Laboratory Results H & H 10/01/18 11/02/18 Range/Units 10:20 05:31 Hgb 16.7 14.3 (14.0-18.0) g/dL Hct 47.1 41.3 L (42-52) % Coagulation 10/01/18 Range/Units 10:20 INR 1.0 (0.9-1.1) Diagnostic Findings Postoperative x-rays of the right hip show the prosthesis to be in anatomic alignment without any evidence of fracture, dislocation, or loosening. PG Care Time/CCT Total # of Minutes Spent Total Time Spent with Patient: Total time spent is greater than 50% in coordination of care (as documented) at patient's floor/unit and/or counseling patient:
--- NOTE | 2018-11-02 09:41 | Discharge Summary ---
Date of Service November 02, 2018 Admission HPI Per Admitting Provider Gustavo is a pleasant 48-year-old male who is been dealing with a several year history of chronic increasing right hip and groin pain. X-rays and clinical examination have been diagnostic for primary osteoarthritis of the right hip. After failing years of conservative treatment, he has elected to proceed with a right anterior total hip arthroplasty. Specialty Data Orthopedic H & H 10/01/18 11/02/18 Range/Units 10:20 05:31 Hgb 16.7 14.3 (14.0-18.0) g/dL Hct 47.1 41.3 L (42-52) % Coagulation 10/01/18 Range/Units 10:20 INR 1.0 (0.9-1.1) Discharge Data Consultations 11/02/18 08:00 Consult Case Management - Discharge Planning Routine Procedures Performed Operation Date: 11/01/18 14:00 Actual Procedures p Right Anterior Total Hip Replacement(Right) - Jose Mcgee DO Hospital Course (1) Osteoarthritis of right hip: On November 01, 2018 Gustavo arrived at [facility] and underwent a right anterior total hip arthroplasty without complication. He had a spinal anesthetic. Postoperatively he was started on aspirin for DVT prophylaxis and discharged to general orthopedic floors. His hospital course was uneventful. On postop day #1 his H&H was stable and his pain was well controlled. He was able to ambulate well with physical therapy. He was then discharged home with [facility]. He will follow-up with orthopedics in 2 weeks. Discharge Instructions Home Medications Medication Instructions Recorded Confirmed ascorbic acid (vitamin C) 500 mg PO QAM 09/23/18 11/01/18 calcium polycarbophil [Fiber 3,810 mg PO QAM 09/23/18 11/01/18 (calcium polycarbophil)] cholecalciferol (vitamin D3) 1 unit PO QAM 09/23/18 11/01/18 garlic 20 mg PO QAM 09/23/18 11/01/18 glucos sul [id number]-C-Mn 2 cap PO QAM 09/23/18 11/01/18 [Glucosamine Chondroitin] lisinopril 10 mg PO QAM 09/23/18 11/01/18 loratadine 10 mg PO QAM 09/23/18 11/01/18 omega 9-zch-gba-fish oil [Wolcott-3] 1 cap PO QAM 09/23/18 11/01/18 Previous Rx's Medication Instructions Recorded aspirin [Ecotrin Low Strength] 81 mg PO BID #84 tab 11/02/18 oxycodone 5 mg PO Q4H PRN #30 tab 11/02/18
== END 2018-11-02 14:08 | disposition home or self-care (01) | DRG 470 ==
LOC: ASU 11:48 → 3E 16:02